=== PATIENT | male | born 2000 | race African-American/Black ===

== ENCOUNTER 2021-10-12 11:47 | Emergency (ER) | payer BC ==
[~2021-10-12] VITALS: Ht 182.9 cm; Wt 59.0 kg
[2021-10-12] MEDS ORDERED: IBUPROFEN 600MG TABLET PO ONE (12:15)
[2021-10-12 13:39] VITALS: BP 123/60
[2021-10-12] MEDS ORDERED: IBUP-2029 MT (13:53)
== END 2021-10-12 14:04 | disposition home or self-care (01) ==
LOC: ER 11:47
DX: S50.01XA Contusion of right elbow, initial encounter (principal); V49.49XA Driver injured in collision with other motor vehicles in traffic accident, initial encounter; Y93.89 Activity, other specified; Y92.89 Other specified places as the place of occurrence of the external cause; Y99.8 Other external cause status
CPT/HCPCS: 73080; 73090; 99284